=== PATIENT | female | born 1995 | race African-American/Black ===

== ENCOUNTER 2017-11-07 23:35 | Emergency (ER) | payer OTHER ==
[2017-11-08] MEDS: KETOROLAC TROMETHAMINE 10 MG TAB PO (01:11)
== END 2017-11-08 01:59 | disposition home or self-care (01) ==
LOC: M ED 23:35
DX: S40.021A Contusion of right upper arm, initial encounter (principal); W22.8XXA Striking against or struck by other objects, initial encounter; Y92.099 Unspecified place in other non-institutional residence as the place of occurrence of the external cause; Y93.89 Activity, other specified; Y99.9 Unspecified external cause status
CPT/HCPCS: 73060

== ENCOUNTER 2018-02-05 13:12 | Emergency (ER) | payer OTHER ==
[2018-02-05 13:48] LABS: BASO % 0.4 % (0.0-1.0); EOS # 0.2 10^3/uL (0.0-0.50); EOS % 1.6 % (0.0-3.0); HEMOGLOBIN 13.3 g/dl (12.0-15.5); IMMATURE GRANULOCYTE % 0.3 % (0-3.0); LYMPH # 1.8 10^3/uL (1.5-6.5); LYMPH % 19.2 % (24.0-44.0); MEAN CORPUSCULAR HEMOGLOBIN 28.4 pg (27.0-33.0); MEAN CORPUSCULAR HGB CONC 34.1 g/dl (32.0-36.5); MEAN CORPUSCULAR VOLUME 83.3 fl (80.0-96.0); MONO # 0.7 10^3/uL (0.0-0.8); MONO % 7.8 % (0.0-5.0); NEUTROPHILS # 6.5 10^3/uL (1.8-7.7); NEUTROPHILS % 70.7 % (36.0-66.0); PLATELET COUNT, AUTOMATED 282 10^3/uL (150-450); RED BLOOD COUNT 4.68 10^6/uL (4.00-5.40); RED CELL DISTRIBUTION WIDTH 12.6 % (11.5-14.5); WHITE BLOOD COUNT 9.1 10^3/uL (4.0-10.0)
[2018-02-05] MEDS: NS 1,000 ML IV (13:52)
[2018-02-05 13:58] LABS: KETONE, URINE AUTO RFX NEGATIVE (NEGATIVE); MUCUS, URINE RFX SMALL (NEGATIVE); NITRITE, URINE AUTO RFX NEGATIVE (NEGATIVE); RBC, URINE AUTO RFX 3 /HPF (0-3); SPECIFIC GRAVITY UR AUTO RFX 1.011 (1.002-1.035); SQUAM EPITHELIAL CELL UR AURFX 1 /HPF (0-6); WBC, URINE AUTO RFX 2 /HPF (0-3)
[2018-02-05 14:03] LABS: CONTROL LINE HCG INT CTR LINE PRESENT; HCG, SERUM QUALITATIVE NEGATIVE (NEGATIVE)
[2018-02-05 14:16] LABS: ALBUMIN 3.5 GM/DL (3.2-5.2); ALBUMIN/GLOBULIN RATIO 0.88 (1.00-1.93); ALKALINE PHOSPHATASE 102 U/L (45-117); ALT/SGPT 20 U/L (12-78); ANION GAP 8 MEQ/L (8-16); AST/SGOT 17 U/L (7-37); BILIRUBIN,DIRECT 0.1 MG/DL (0.0-0.2); BILIRUBIN,TOTAL 0.5 MG/DL (0.2-1.0); BLOOD UREA NITROGEN 9 MG/DL (7-18); CALCIUM LEVEL 8.5 MG/DL (8.5-10.1); CARBON DIOXIDE LEVEL 26 MEQ/L (21-32); CHLORIDE LEVEL 109 MEQ/L (98-107); GLOMERULAR FILTRATION RATE > 60.0 (>60); GLUCOSE, FASTING 80 MG/DL (70-100); LIPASE 104 U/L (73-393); SODIUM LEVEL 143 MEQ/L (136-145); TOTAL PROTEIN 7.5 GM/DL (6.4-8.2)
[2018-02-05 14:24] LABS: LEUKOCYTE ESTERASE UR AUTO RFX 1+ (NEGATIVE)
[2018-02-05] MEDS: ONDANSETRON 4MG/2ML VIAL (J2405) IV (14:57)
== END 2018-02-05 15:11 | disposition home or self-care (01) ==
LOC: M ED 13:12
DX: R10.84 Generalized abdominal pain (principal); R11.2 Nausea with vomiting, unspecified; R19.7 Diarrhea, unspecified; Z79.3 Long term (current) use of hormonal contraceptives
CPT/HCPCS: J2405

== ENCOUNTER → 2018-02-07 | Outpatient (REF) | payer OTHER | LOC: M LAB REF 12:13 | DX: R19.7 Diarrhea, unspecified (principal) | CPT/HCPCS: 87507 ==

== ENCOUNTER 2018-05-31 16:49 | Emergency (ER) | payer OTHER, SELFPAY ==
[~2018-05-31] VITALS: Ht 177.8 cm; Wt 90.0 kg
[~2018-05-31 16:49] MED LIST: BENT10CA PO; NEXP1IMP SC; PEPT262T2 PO; ZOFR4TAB14 PO
[2018-05-31] MEDS ORDERED: MELO15TA28 (17:00)
[2018-05-31 18:37] LABS: INFLUENZA A AMPLIFICATION NEGATIVE (NEGATIVE); INFLUENZA B AMPLIFICATION NEGATIVE (NEGATIVE)
[2018-05-31] MEDS ORDERED: METOCLOPRAMIDE INJ 10MG/2ML VIAL (J2765) IV ONE (19:15)
[2018-05-31] MEDS ORDERED: NS 1,000 ML IV ONE (19:15)
[2018-05-31 19:30] LABS: BASO % 0.1 % (0.0-1.0); EOS % 0.1 % (0.0-3.0); HEMATOCRIT 39.3 % (36.0-47.0); HEMOGLOBIN 13.8 g/dl (12.0-15.5); MEAN CORPUSCULAR HEMOGLOBIN 28.6 pg (27.0-33.0); MEAN CORPUSCULAR HGB CONC 35.1 g/dl (32.0-36.5); MEAN CORPUSCULAR VOLUME 81.5 fl (80.0-96.0); MONO # 0.7 10^3/uL (0.0-0.8); MONO % 9.4 % (0.0-5.0); NEUTROPHILS # 5.6 10^3/uL (1.8-7.7); NEUTROPHILS % 76.1 % (36.0-66.0); PLATELET COUNT, AUTOMATED 230 10^3/uL (150-450); RED BLOOD COUNT 4.82 10^6/uL (4.00-5.40); WHITE BLOOD COUNT 7.3 10^3/uL (4.0-10.0)
[2018-05-31 19:43] LABS: APPEARANCE, URINE HAZY (CLEAR); BACTERIA, URINE AUTO 1+ (NEGATIVE); BILIRUBIN, URINE AUTO NEGATIVE (NEGATIVE); BLOOD, URINE BLOOD NEGATIVE (NEGATIVE); COLOR, URINE YELLOW (YELLOW); GLUCOSE, URINE (UA) AUTO NEGATIVE (NEGATIVE); KETONE, URINE AUTO NEGATIVE (NEGATIVE); LEUKOCYTE ESTERASE, URINE AUTO 1+ (NEGATIVE); NITRITE, URINE AUTO NEGATIVE (NEGATIVE); PROTEIN, URINE AUTO NEGATIVE (NEGATIVE); RBC, URINE AUTO 3 /HPF (0-3); SPECIFIC GRAVITY URINE AUTO 1.014 (1.002-1.035); SQUAMOUS EPITHELIAL CELL UR AU 8 /HPF (0-6); UROBILINOGEN, URINE AUTO 0.2 mg/dL (0.0-2.0); WBC, URINE AUTO 9 /HPF (0-3)
[2018-05-31 20:00] LABS: ALBUMIN 3.4 GM/DL (3.2-5.2); ALT/SGPT 15 U/L (12-78); AMYLASE 65 U/L (25-115); BILIRUBIN,TOTAL 0.7 MG/DL (0.2-1.0); BLOOD UREA NITROGEN 9 MG/DL (7-18); CALCIUM LEVEL 8.1 MG/DL (8.5-10.1); CARBON DIOXIDE LEVEL 24 MEQ/L (21-32); CHLORIDE LEVEL 104 MEQ/L (98-107); CREATININE FOR GFR 0.86 MG/DL (0.55-1.30); GLOMERULAR FILTRATION RATE > 60.0 (>60); GLUCOSE, FASTING 90 MG/DL (70-100); HCG, SERUM QUANTITATIVE < 1.0 MIU/ML; LIPASE 72 U/L (73-393); POTASSIUM SERUM 3.7 MEQ/L (3.5-5.1); SODIUM LEVEL 137 MEQ/L (136-145); TOTAL PROTEIN 6.4 GM/DL (6.4-8.2)
[2018-05-31] MEDS ORDERED: ONDA4TAB6 PO (20:54)
[2018-05-31 20:57] VITALS: BP 104/53
== END 2018-05-31 21:06 | disposition home or self-care (01) ==
LOC: M ED 16:49
DX: R11.2 Nausea with vomiting, unspecified (principal); R19.7 Diarrhea, unspecified
CPT/HCPCS: 80053; 81001; 82150; 83690; 84702; 85025; 87502; 96361; 96374; 99284; J2765

== ENCOUNTER → 2019-02-02 | Outpatient (CLI) | payer OTHER ==
[~2019-02-02] MED LIST changes: +MELO15TA28; +ONDA4TAB6 PO
== END ==
LOC: M WUC 14:58
DX: Z32.00 Encounter for pregnancy test, result unknown (principal)

== ENCOUNTER 2019-05-25 08:54 | Emergency (ER) | payer OTHER ==
[~2019-05-25] VITALS: Ht 177.8 cm; Wt 105.6 kg
[2019-05-25] MEDS ORDERED: PREN27TA3 (09:00)
[2019-05-25] MEDS ORDERED: NS 1,000 ML IV ONE (09:15)
[2019-05-25] MEDS ORDERED: ONDANSETRON 4MG/2ML VIAL (J2405) IV ONE (09:15)
[2019-05-25 10:03] LABS: BASO % 0.1 % (0.0-1.0); EOS % 0.1 % (0.0-3.0); HEMATOCRIT 35.6 % (36.0-47.0); LYMPH # 0.5 10^3/uL (1.5-5.0); LYMPH % 6.7 % (24.0-44.0); MEAN CORPUSCULAR HEMOGLOBIN 28.8 pg (27.0-33.0); MEAN CORPUSCULAR HGB CONC 33.7 g/dl (32.0-36.5); MEAN CORPUSCULAR VOLUME 85.4 fl (80.0-96.0); MONO # 0.4 10^3/uL (0.0-0.8); MONO % 5.4 % (0.0-5.0); NEUTROPHILS # 6.9 10^3/uL (1.5-8.5); NEUTROPHILS % 86.9 % (36.0-66.0); PLATELET COUNT, AUTOMATED 200 10^3/uL (150-450); RED BLOOD COUNT 4.17 10^6/uL (4.00-5.40); WHITE BLOOD COUNT 7.9 10^3/uL (4.0-10.0)
[2019-05-25 10:34] LABS: ALBUMIN 2.9 GM/DL (3.2-5.2); ALT/SGPT 15 U/L (12-78); AMYLASE 74 U/L (25-115); BILIRUBIN,DIRECT 0.1 MG/DL (0.0-0.2); BILIRUBIN,TOTAL 0.5 MG/DL (0.2-1.0); BLOOD UREA NITROGEN 6 MG/DL (7-18); CALCIUM LEVEL 8.2 MG/DL (8.5-10.1); CARBON DIOXIDE LEVEL 24 MEQ/L (21-32); CHLORIDE LEVEL 108 MEQ/L (98-107); CREATININE FOR GFR 0.71 MG/DL (0.55-1.30); GLOMERULAR FILTRATION RATE > 60.0 (>60); GLUCOSE, FASTING 83 MG/DL (70-100); LIPASE 55 U/L (73-393); POTASSIUM SERUM 3.6 MEQ/L (3.5-5.1); SODIUM LEVEL 140 MEQ/L (136-145); TOTAL PROTEIN 5.9 GM/DL (6.4-8.2)
[2019-05-25] MEDS ORDERED: ONDA4TAB6 PO (11:12)
[2019-05-25 11:13] VITALS: BP 114/53
== END 2019-05-25 11:45 | disposition home or self-care (01) ==
LOC: M ED 08:54
DX: O99.612 Diseases of the digestive system complicating pregnancy, second trimester (principal); Z3A.19 19 weeks gestation of pregnancy; Z79.899 Other long term (current) drug therapy
CPT/HCPCS: 80048; 80076; 81001; 82150; 83690; 85025; 87086; 96361; 96374; 99284; J2405

== ENCOUNTER 2019-10-08 21:42 | Outpatient (CLI) | payer OTHER ==
[~2019-10-08] VITALS: Ht 177.8 cm; Wt 108.1 kg
[~2019-10-08 21:42] MED LIST changes: +PREN27TA3
[2019-10-08 22:18] VITALS: BP 122/79
--- NOTE | 2019-10-09 06:57 | HPE ---
DATE OF ADMISSION: 10/08/2019 24-year-old, 2, para 1, last menstrual period (LMP) 01/11/2019, estimated date of confinement (EDC) 10/18/2019, at 38 and 4, decreased movement. No vaginal loss. No vaginal bleeding. RISK FACTORS: She is sickle cell trait positive. Body mass index (BMI) is 32.23. PAST HISTORY: 01/2015 at 41 weeks, spontaneous vaginal delivery, female, 7 pounds 7 ounces. LABS: O positive, HIV negative, hepatitis negative, RPR negative, rubella immune. Varicella immune. Pap normal. Urine negative. Gonorrhea and chlamydia were negative. Early 1-hour glucose 130. 28-week GTT was 109. GBS is negative. Blood pressure 122/79, respirations 18, pulse 83, temperature is 97.8. Urine 1.005, pH 5, +1 leukocytes. The rest are negative. ON EXAMINATION: No distress. Symphysis fundus height is 40, vertex presenting. Category 1 strip. Accelerations noted. No decelerations. No contractions. Moderate variability. ULTRASOUND: Amniotic fluid index (LUPILLO) is 15.26 in three quadrants. Vertex presenting. Cardiac activity was prominent. Tone was noted. movement of four limbs and spontaneous respirations were noted. Biophysical was, therefore, 8/8. PLAN: The plan was for discharge. Followup with appointment at [facility] 11/09/2019. Discharge instructions were given, and the patient was discharged undelivered.
== END 2019-10-08 22:45 | disposition home or self-care (01) ==
LOC: M LDO 21:42
PROVIDERS: ATTEND Obstetrics & Gynecology
DX: O36.8130 Decreased fetal movements, third trimester, not applicable or unspecified (principal); Z3A.38 38 weeks gestation of pregnancy
CPT/HCPCS: 59025; 76815; G0378; G0463

== ENCOUNTER 2019-10-20 00:25 | Inpatient (IN) | payer OTHER ==
[~2019-10-20] VITALS: Ht 177.8 cm; Wt 108.5 kg
[2019-10-20] VITALS (18 sets, daily range): BP systolic 112–146; BP diastolic 49–96
[2019-10-20 01:49] LABS: HEMATOCRIT 40.1 % (36.0-47.0); HEMOGLOBIN 13.4 g/dl (12.0-15.5); MEAN CORPUSCULAR HEMOGLOBIN 27.3 pg (27.0-33.0); MEAN CORPUSCULAR HGB CONC 33.4 g/dl (32.0-36.5); MEAN CORPUSCULAR VOLUME 81.7 fl (80.0-96.0); PLATELET COUNT, AUTOMATED 222 10^3/uL (150-450); RED BLOOD COUNT 4.91 10^6/uL (4.00-5.40); WHITE BLOOD COUNT 16.7 10^3/uL (4.0-10.0)
[2019-10-20] MEDS ORDERED: LR 1,000 ML IV SCH (02:13)
[2019-10-20] MEDS ORDERED: LACTATED RINGER'S 1000 ML IV ONE (02:15)
[2019-10-20] MEDS ORDERED: FENTANYL 2MCG/ML ROPIVACAINE 0.2% IN 0.9% NACL 100ML IVBAG As Ordered ONE (02:52)
[2019-10-20] MEDS ORDERED: OXYTOCIN 30 UNITS IN 0.9% NaCl 500ML IV BAG (J2590) As Ordered ONE (03:39)
[2019-10-20] MEDS ORDERED: REFRIGERATOR IV KEYS XX PRN (04:00)
[2019-10-20] MEDS ORDERED: ONDANSETRON 4MG/2ML VIAL IV PRN (04:00)
[2019-10-20] MEDS ORDERED: diphenhydrAMINE 50MG/ML VIAL (J1200) IV PRN (04:00)
[2019-10-20] MEDS ORDERED: NALOXONE INJ 0.4MG/1ML VIAL (J2310 PER 1MG) IV PRN (04:00)
[2019-10-20] MEDS ORDERED: ePHEDrine SULFATE 25 MG/5 ML(5MG/ML) SYRINGE IV PRN (04:00)
[2019-10-20] MEDS ORDERED: EPIDURAL/PCA KEYS XX PRN (04:00)
[2019-10-20] MEDS ORDERED: EPIDURAL COMMENT XX SCH (04:00)
[2019-10-20] MEDS ORDERED: LACTATED RINGER'S 1000 ML IV PRN (04:00)
[2019-10-20] MEDS ORDERED: FENTANYL/ROPIVACAINE/NACL BAG 100 ML EPIDURAL SCH (04:00)
[2019-10-20 04:59] LABS: CORD GAS ABE A -3.1; CORD GAS HCO3 A 24.4 MEQ/L; CORD GAS HCO3 V 18.3 MEQ/L; CORD GAS O2 SAT A 31.6 %; CORD GAS O2 SAT V 81.2 %; CORD GAS PCO2 A 53.3 mmHg; CORD GAS PH A 7.279 UNITS; CORD GAS PH V 7.361 UNITS; CORD GAS PO2 A 16.5 mmHg; CORD GAS PO2 V 36.6 mmHg; CORD GAS SBC A 20.3 MEQ/L; CORD GAS SBC V 19.2 MEQ/L; CORD GAS TCO2 A 26.1 MEQ/L; CORD GAS TCO2 V 19.3 MEQ/L
[2019-10-20] MEDS ORDERED: MEASLES,MUMPS,RUBELLA VACCINE INJ (MMR-II) (90707) SC SCH (05:30)
[2019-10-20] MEDS ORDERED: OXYTOCIN DRIP 30 UNITS in IV 1 EA IV ONE (05:30)
[2019-10-20] MEDS ORDERED: METHYLERGONOVINE MALEATE 0.2 MG TAB PO PRN (05:30)
[2019-10-20] MEDS ORDERED: MOM 30ML SUSPENSION UDC PO PRN (05:30)
[2019-10-20] MEDS ORDERED: ACETAMINOPHEN TAB 650MG DOSE (2X325MG) PO PRN (05:30)
[2019-10-20] MEDS ORDERED: DIBUCAINE 1% OINTMENT 30GM TOP PRN (05:30)
[2019-10-20] MEDS ORDERED: OXYTOCIN INJ 10 UNITS/ML VIAL (J2590) IV ONE (05:30)
[2019-10-20] MEDS ORDERED: IBUPROFEN 600MG TAB PO PRN (05:30)
[2019-10-20] MEDS ORDERED: ANUSOL HC CREAM 30GM TOP PRN (05:30)
[2019-10-20] MEDS ORDERED: ACETAMINOPHEN 500 MG TAB PO PRN (05:30)
[2019-10-20] MEDS ORDERED: DOCUSATE SODIUM 100 MG CAP PO PRN (05:30)
[2019-10-20] MEDS ORDERED: RHOGAM 300 MCG (1500 IU) INJ (J2790) IM SCH (05:30)
[2019-10-20] MEDS: IBUPROFEN 800 MG TAB PO PRN ×2 (05:42→11:43)
[2019-10-20] MEDS ORDERED: OXYTOCIN INJ 10 UNITS/ML VIAL (J2590) As Ordered ONE (06:16)
[2019-10-20] MEDS: PRENATAL VITAMINS CHEWABLE TABLET PO SCH (07:35)
--- NOTE | 2019-10-20 10:58 | HPE ---
DATE OF ADMISSION: 10/20/2019 HISTORY: 23-year-old, 2, para 1, last menstrual period (LMP) 01/11/2019, estimated date of confinement (EDC) 10/18/2019, at 40 and 2 gestation, with spontaneous labor, no vaginal bleeding. RISK FACTORS: Sickle cell trait positive, body mass index (BMI) is 32.63, and she is post dates. PAST HISTORY: In 2014, 41 weeks, spontaneous vaginal delivery, female, 7 pounds 7 ounces. Labs are O+. HIV negative. Hepatitis negative. RPR negative. Rubella immune. Varicella immune. Pap normal. Urine negative. Gonorrhea and chlamydia are negative. 1-hour glucose early was 130, 28-week GTT was 109. GBS negative. She is COVID negative. Blood pressure is 132/76, respirations 18, pulse 82, temperature 97.7. Urine is 1.015, pH is 5 and the rest is negative. On examination, no distress. Symphysis fundus height is 40, vertex presenting, category 1 strip, 4 cm, bulging membranes, an artifical rupture of membranes (AROM) was done draining particulate meconium, -3 station not well applied. Our plan is to do an IV, hydrate and it was safe to continue. The rest of examination is unremarkable. She is normocephalic, atraumatic. Neck full range of motion. Pupils equal and reactive to light. Distal pulses symmetric. No evidence of deep venous thrombosis (DVT), pulmonary embolism (PE) or superficial phlebitis. Chest is clear bilaterally bases. No wheezes or rhonchi. No costovertebral angle (CVA) tenderness. Four quadrant bowel sounds are noted. No rashes, lesions or pruritus. No arthralgia or myalgia. No complaint joint pain. No complaint of cough, wheeze, shortness of breath or dyspnea on exertion. No nausea, vomiting, diarrhea or constipation. No bruising. Not bleeding. She has no endocrine issues, and no heat or cold sensitivities. Her past gynecology ([employer]) history she has had a normal Pap smear. No sexually transmitted diseases (STDs). Past medical history is sickle cell trait. Past surgical unremarkable. Family history noncontributory. She does not smoke, drink, abuse drugs. She is . No domestic violence, has good support system. We discussed the consent for vaginal delivery, which is delivery through the vagina, with the possible use of vacuum or forceps if needed for maternal or indications. These are devices that consist with vaginal delivery when normal pushing efforts cannot achieve delivery on their own or when deliveries needed for an emergency for baby's well-being. Medications may be used to augment or induce labor. In order to achieve vaginal delivery an episiotomy may be required to help baby deliver vaginally. You may also require repair of any lacerations or tears of vagina or vulva that are caused during her delivery. In some cases emergencies arise requiring emergency section will be discussed with you by the provider and only done for clinical indications and this is that this is delivery through an incision on your abdomen. Other risks of vaginal delivery include not limited to bleeding, infection, injury to the vagina, pelvic structures, injury to baby, damage to the uterus, reaction to anesthesia, uterine rupture, risk of hysterectomy for life-threatening bleeding or . Medications used to augment or induce labor may increase the risks of infection, uterine tachysystole, uterine rupture, bleeding or , heart rate abnormalities and need for emergency section, and also the risk of hemorrhage. There may be also an increased risk of perineal vaginal lacerations, risk of urinary or bowel incontinence, and possibility for the baby such as scratches to the head, hematomas or intracranial bleed. The patient expressed understanding of the procedure. All questions were answered. 20-minute discussion. Safe to proceed.
[2019-10-21] MEDS: IBUPROFEN 800 MG TAB PO PRN ×2 (02:39→15:43)
[2019-10-21 06:00] VITALS: BP 116/59
--- NOTE | 2019-10-21 08:22 | IPNPDOC ---
Progress Note Date of Service: Oct 21, 2019 Day#: 1 Progress Note SUBJECT: Doing well without complaints. Ambulating, voiding and pain is well-c ontrolled. Reports minimal lochia. +breast feeding OBJECTIVE: VITAL SIGNS: Within normal limits, afebrile. Alert and oriented times three. Abdomen: Fundus firm at U-2. Soft, NTTP. Ext: neg calf tenderness. ASSESSMENT: day #1 status post normal spontaneous vaginal delivery. Recovering in stable condition. PLAN: 1. Continue routine care 2. Discharge plans for tomorrow VS, I&O, 24H, Fishbone Vital Signs/I&O Vital Signs Date Time Temp Pulse Resp B/P (MAP) Pulse Ox O2 Delivery O2 Flow Rate FiO2 10/21/19 06:00 96.8 70 16 116/59 (78) 99 Room Air I&O- Last 24 Hours up to 6 AM 10/21/19 06:00 Intake Total 500 ml Output Total 1300 ml Balance -800 ml RON DURON MD. Oct 21, 2019 08:22
[2019-10-21 08:34] LABS: HEMATOCRIT 33.7 % (36.0-47.0); MEAN CORPUSCULAR HEMOGLOBIN 27.4 pg (27.0-33.0); MEAN CORPUSCULAR HGB CONC 33.5 g/dl (32.0-36.5); MEAN CORPUSCULAR VOLUME 81.6 fl (80.0-96.0); PLATELET COUNT, AUTOMATED 205 10^3/uL (150-450); RED BLOOD COUNT 4.13 10^6/uL (4.00-5.40); WHITE BLOOD COUNT 14.8 10^3/uL (4.0-10.0)
[2019-10-21] MEDS: PRENATAL VITAMINS CHEWABLE TABLET PO SCH (08:36)
[2019-10-21 08:48] LABS: HEMOGLOBIN 11.3 g/dl (12.0-15.5)
--- NOTE | 2019-10-21 17:43 | DN ---
DATE: 10/20/2019 This lady is a 24-year 2, para 1, admitted at 40 and 2 weeks of gestation in spontaneous labor. She had a spontaneous vaginal delivery male , 8 pounds 3 ounces, 3720 grams, scores of 8 and 8 at one and five minutes, respectfully. She did have particulate meconium. The baby had suction at the perineum, nasal, and oral. There was some meconium sucked out below the cords. Arterial pH 7.29, base excess -3.1, venous pH 7.36, base excess -6.0. The placenta delivered spontaneously thereafter, 3-vessel cord. Membranes and tissues intact. It was meconium stained and was calcified. The uterus contracted well down on Pitocin. She had a small varicosity on her left side, oversewn with 2-0 Vicryl on a J339. The anterior, posterior, and lateral orr were complete. Sphincter was tight. Uterus contracted well down on Pitocin. The patient and baby tolerating procedure well.
[2019-10-21 18:00] VITALS: BP 120/71
[2019-10-21] MEDS ORDERED: ACET-683 PO (19:02)
[2019-10-21] MEDS ORDERED: IBUP-1022 PO (19:02)
--- NOTE | 2019-10-21 19:05 | OBDS ---
[facility] Obstetrical Discharge Sum. Obstetrical Discharge Summary Date: Oct 21, 2019 Time: 19:02 : 2 Term: 2 Pre-term: 0 Abortions: 0 Livin Labor Spontaneous Delivery Sex: Male Weight: pounds (8), ounces (3), grams (3720) A/P, Post Course List any complications Admission diagnosis: Labor Discharge diagnosis: Delivered Condition at Discharge: Stable Discharge Instructions: Nothing in vagina for 6 weeks, monitor for s/sx of infection, hemorrhage, and PPD. Activity: Increase as tolerated Diet: Regular Medications: Routine Follow-up: 6-8 weeks at [facility] Other: n/a YAKOV JOHNSON CNM Oct 21, 2019 19:05
== END 2019-10-21 19:47 | disposition home or self-care (01) | DRG 806 ==
LOC: M LDO 00:25 → M LDI 00:59 → M OBS 06:48
PROVIDERS: ADMIT Obstetrics & Gynecology; ATTEND Obstetrics & Gynecology
PROC: 10E0XZZ Delivery of Products of Conception, External Approach (ICD-10-PCS; principal; 2019-10-20)
PROC: 0HQ9XZZ Repair Perineum Skin, External Approach (ICD-10-PCS; 2019-10-20)
DX: O48.0 Post-term pregnancy (principal); Z37.0 Single live birth; O87.8 Other venous complications in the puerperium; Z3A.40 40 weeks gestation of pregnancy; D57.3 Sickle-cell trait; O99.02 Anemia complicating childbirth

== ENCOUNTER 2019-10-23 12:35 | Day surgery (SDC) | payer OTHER ==
[~2019-10-23] VITALS: Ht 177.8 cm; Wt 103.6 kg
[~2019-10-23 12:35] MED LIST changes: +ACET-683 PO; +IBUP-1022 PO
[2019-10-23] MEDS ORDERED: NS 1,000 ML IV ONE (13:15)
[2019-10-23] MEDS ORDERED: fentaNYL 100 MCG/2 ML INJECTION (J3010) As Ordered ONE (14:38)
[2019-10-23] MEDS ORDERED: fentaNYL 100 MCG/2 ML INJECTION (J3010) IV ONE (15:30)
[2019-10-23 15:50] VITALS: BP 133/71
== END 2019-10-23 16:00 | disposition home or self-care (01) ==
LOC: M ED 12:35 → M SDC 14:26
PROVIDERS: ATTEND Anesthesiology
DX: G97.1 Other reaction to spinal and lumbar puncture (principal)

== ENCOUNTER 2020-11-03 07:42 | Emergency (ER) | payer OTHER ==
[~2020-11-03] VITALS: Ht 180.3 cm; Wt 113.8 kg
[2020-11-03] MEDS ORDERED: LORA-674 PO (07:52)
[2020-11-03] MEDS ORDERED: CEPACOL LOZENGE MT STA (08:21)
[2020-11-03] MEDS ORDERED: methylPREDNISolone 125MG 2ML VIAL IV ONE (08:25)
[2020-11-03] MEDS ORDERED: BENZONATATE 100 MG CAP PO ONE (08:25)
[2020-11-03] MEDS ORDERED: ACETAMINOPHEN 500 MG TAB PO ONE (08:30)
[2020-11-03] MEDS: ALBUTEROL 90 MCG/ACT 8GM HFA INHALER INH SCH ×3 (08:37→09:49)
[2020-11-03 08:58] LABS: BASO % 0.3 % (0.0-1.0); EOS # 0.2 10^3/uL (0.0-0.5); EOS % 3.6 % (0.0-3.0); HEMATOCRIT 38.2 % (36.0-47.0); HEMOGLOBIN 12.5 g/dl (12.0-15.5); LYMPH # 1.5 10^3/uL (1.5-5.0); LYMPH % 22.9 % (24.0-44.0); MEAN CORPUSCULAR HEMOGLOBIN 26.5 pg (27.0-33.0); MEAN CORPUSCULAR HGB CONC 32.7 g/dl (32.0-36.5); MEAN CORPUSCULAR VOLUME 80.9 fl (80.0-96.0); MONO # 0.8 10^3/uL (0.0-0.8); MONO % 12.1 % (2.0-8.0); NEUTROPHILS # 3.9 10^3/uL (1.5-8.5); NEUTROPHILS % 60.8 % (36.0-66.0); PLATELET COUNT, AUTOMATED 257 10^3/uL (150-450); RED BLOOD COUNT 4.72 10^6/uL (4.00-5.40); WHITE BLOOD COUNT 6.4 10^3/uL (4.0-10.0)
[2020-11-03 09:09] VITALS: O2SAT 99
[2020-11-03 09:39] LABS: ALBUMIN 3.4 GM/DL (3.2-5.2); ALT/SGPT 14 U/L (12-78); BILIRUBIN,TOTAL 0.4 MG/DL (0.2-1.0); BLOOD UREA NITROGEN 8 MG/DL (7-18); CALCIUM LEVEL 8.6 MG/DL (8.5-10.1); CARBON DIOXIDE LEVEL 25 MEQ/L (21-32); CHLORIDE LEVEL 108 MEQ/L (98-107); CK-MB VALUE MASS < 1.0 NG/ML (<3.6); CPK CREATINE PHOSPHOKINASE 119 U/L (26-192); CREATININE FOR GFR 0.84 MG/DL (0.55-1.30); GLOMERULAR FILTRATION RATE > 60.0 (>60); GLUCOSE, FASTING 87 MG/DL (70-100); MB/CK RELATIVE INDEX 0.84 (< OR =4); POTASSIUM SERUM 4.3 MEQ/L (3.5-5.1); SODIUM LEVEL 140 MEQ/L (136-145); TOTAL PROTEIN 6.8 GM/DL (6.4-8.2); TROPONIN I < 0.02 NG/ML (< 0.10)
[2020-11-03] MEDS ORDERED: ISOVUE-370 76% 100ML VIAL As Ordered ONE (10:50)
--- NOTE | 2020-11-03 11:20 | REP ---
INDICATION: chest pain, cough COMPARISON: None. TECHNIQUE: Portable AP view of the chest FINDINGS: The mediastinum and cardiac silhouette are within normal limits for portable technique. The lung miles are clear without acute consolidation, effusion, or pneumothorax. Skeletal structures are intact. IMPRESSION: No acute cardiopulmonary process appreciated. <Electronically signed by Sid Mckee > 11/03/20 [id number]
--- NOTE | 2020-11-03 11:50 | REP ---
INDICATION: r/o PE COMPARISON: None. TECHNIQUE: Axial contrast enhanced images from the thoracic inlet to the upper abdomen using pulmonary embolus technique with multiplanar re-formations. 75 ml Isovue 370 intravenous contrast material administered without complication. This CT examination was performed using the following dose reduction techniques: Automated exposure control, adjustment of mA and/or kv according to the patient's size, and use of iterative reconstruction technique. FINDINGS: Satisfactory enhancement of the pulmonary vasculature is achieved and no filling defects are identified to suggest pulmonary embolus. Further evaluation of the mediastinum demonstrates normal thoracic aorta, heart and pericardium. The bilateral lung miles are well aerated and clear without consolidation pleural effusion or pneumothorax. Tracheobronchial tree is patent. No nodule or mass lesion is identified. No adenopathy noted. Surrounding musculoskeletal structures intact IMPRESSION: No evidence for pulmonary embolus. No acute mediastinal or pleural parenchymal process. <Electronically signed by Sid Mckee > 11/03/20 [id number]
[2020-11-03] MEDS ORDERED: TESS100C PO (12:15)
[2020-11-03] MEDS ORDERED: GUAI1SOL7 PO (12:15)
[2020-11-03] MEDS ORDERED: AMOX500C PO (12:15)
[2020-11-03] MEDS ORDERED: PROAAER10 INH (12:17)
[2020-11-03] MEDS ORDERED: IBUP80TA PO (12:17)
[2020-11-03 12:24] VITALS: BP 128/64
--- NOTE | 2020-11-03 19:14 | ECGEPIP ---
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
== END 2020-11-03 12:27 | disposition home or self-care (01) ==
LOC: M ED 07:42
DX: J00 Acute nasopharyngitis [common cold] (principal); J02.9 Acute pharyngitis, unspecified; J06.9 Acute upper respiratory infection, unspecified; B34.9 Viral infection, unspecified; J98.01 Acute bronchospasm; M94.0 Chondrocostal junction syndrome [Tietze]; B34.8 Other viral infections of unspecified site; B34.1 Enterovirus infection, unspecified; I44.0 Atrioventricular block, first degree; E66.9 Obesity, unspecified; J30.9 Allergic rhinitis, unspecified
CPT/HCPCS: 71045; 71275; 80053; 82550; 82553; 84484; 84702; 85025; 85379; 87798; 87880; 93005; 94640; 99284; J2930; Q9967